=== PATIENT | male | born 1960 | race Caucasian/White ===

== ENCOUNTER 2018-09-27 09:11 | Inpatient (IN) | payer OTHER ==
[~2018-09-27] VITALS: Ht 190.5 cm; Wt 93.7 kg
[2018-09-27] VITALS (14 sets, daily range): BP systolic 73–120; BP diastolic 39–68
--- NOTE | ~2018-09-27 | EEG ---
[address] [address] EEG STUDY REPORT Name: OLIVE GARCIA Room: [address] IN .R.#: [id number] Admission: 09/27/18 Attend Phys: Joel Alvarez MD Discharge: Date of : 64 Report #: [id number] THIS REPORT FOR: //name// CC: Joel Alvarez [facility] physician/PCP DATE OF SERVICE: 09/28/2018 The patient is being evaluated for speech difficulty. The EEG was done by placing the electrodes by standard 10-20 system of electrode placement. Both referential and sequential montages were used for recording. The patient's background activity in this patient's EEG is about 9 Hz and 30 microvolts. The patient became drowsy and that was associated with bilateral slowing and vertex sharp waves. Photic stimulation was unremarkable. Throughout the record, no active epileptiform activity was noticed. IMPRESSION: This patient's EEG is unremarkable. By: 1143 1210Momo Cornelius MD /nt
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
[2018-09-27 09:29] LABS: ABSOLUTE BASOPHILS 0.1 thou/uL (0.0-0.2); ABSOLUTE EOSINOPHILS 0.1 thou/uL (0.0-0.7); ABSOLUTE LYMPHOCYTES 2.1 thou/uL (0.8-5.3); ABSOLUTE MONOCYTES 0.6 thou/uL (0.0-1.2); ABSOLUTE NEUTROPHILS 4.9 thou/uL (1.6-8.1); BASOPHILS 0.7 %; EOSINOPHILS 1.1 %; HEMATOCRIT 38.2 % (42.0-52.0); HEMOGLOBIN 12.7 gm/dL (14.0-18.0); LYMPHOCYTES 27.4 %; MCH 28.9 pg (26.0-34.0); MCHC 33.2 g/dL (28.0-37.0); MONOCYTES 7.8 %; MPV 10.9 fl. (7.2-11.1); NUCLEATED RBCS 0 /100WBC; PLATELET COUNT* 177 thou/uL (150-400); RBC 4.39 mil/uL (4.50-6.00); RDW-CV 13.4 % (10.5-14.5); WBC 7.8 thou/uL (4.0-11.0)
[2018-09-27 09:38] LABS: ANION GAP 5 mmol/L (7-16); APTT 27.8 Seconds (25.0-31.3); BUN 23 mg/dL (7-18); CALCIUM 8.6 mg/dL (8.5-10.1); CHLORIDE 106 mmol/L (98-107); CO2 27 mmol/L (21-32); GLUCOSE 99 mg/dL (70-99); POTASSIUM 4.2 mmol/L (3.5-5.1); PROTIME 10.4 Seconds (9.20-11.50); SODIUM 138 mmol/L (136-145)
[2018-09-27 09:49] LABS: ALBUMIN 3.7 g/dL (3.4-5.0); ALKALINE PHOSPHATASE 80 U/L (46-116); NT-PRO BRAIN NAT PEPTIDE 120 pg/mL (<300); SGOT 16 U/L (15-37); SGPT 25 U/L (30-65); TOTAL BILIRUBIN 0.4 mg/dL (<0.1-1.0); TOTAL PROTEIN 7.1 g/dL (6.4-8.2); TROPONIN-I LEVEL <0.06 ng/mL (<0.06)
[2018-09-28] VITALS (16 sets, daily range): BP systolic 91–121; BP diastolic 50–69
[2018-09-28 04:02] LABS: ABSOLUTE EOSINOPHILS 0.2 thou/uL (0.0-0.7); ABSOLUTE MONOCYTES 0.8 thou/uL (0.0-1.2); ABSOLUTE NEUTROPHILS 5.5 thou/uL (1.6-8.1); BASOPHILS 0.5 %; EOSINOPHILS 2.4 %; HEMATOCRIT 41.8 % (42.0-52.0); HEMOGLOBIN 13.6 gm/dL (14.0-18.0); LYMPHOCYTES 23.6 %; MCH 28.5 pg (26.0-34.0); MCHC 32.5 g/dL (28.0-37.0); MCV 87.7 fL (80.0-100.0); MPV 11.9 fl. (7.2-11.1); NUCLEATED RBCS 0 /100WBC; PLATELET COUNT* 179 thou/uL (150-400); POLYS 64.5 %; RBC 4.77 mil/uL (4.50-6.00); RDW-CV 13.5 % (10.5-14.5); WBC 8.6 thou/uL (4.0-11.0)
[2018-09-28 04:19] LABS: ALBUMIN 3.1 g/dL (3.4-5.0); CALCIUM 8.8 mg/dL (8.5-10.1); CREATININE 1.1 mg/dL (0.6-1.3); POTASSIUM 4.3 mmol/L (3.5-5.1); TOTAL BILIRUBIN 0.2 mg/dL (<0.1-1.0); TOTAL PROTEIN 6.5 g/dL (6.4-8.2)
[2018-09-28 04:23] LABS: CHOLESTEROL 113 mg/dL (<200); HDL CHOLESTEROL 38 mg/dL (>40); LDL CHOLESTEROL 53 mg/dL (<100); TRIGLYCERIDE 113 mg/dL (<150); VLDL 23 mg/dL (<40)
[2018-09-28 04:25] LABS: SERUM ASSESSMENT CLEAR
[2018-09-28 05:05] LABS: GLYCOHEMOGLOBIN (HGB A1C) 5.8 % (4.8-5.6)
--- NOTE | 2018-09-28 11:06 | EKG ---
[place] [address] ELECTROCARDIOGRAM REPORT Name: OLIVE GARCIA Room: [address] ADM IN .R.#: [id number] Admission: 09/27/18 Attend Phys: Jole Alvarez MD Discharge: Date of : 64 Report #: [id number] THIS REPORT FOR: //name// [facility] ED Test Date: 2018-09-27 Test Time: 09:23:48 Pat Name: OLIVE GARCIA Department: Room: [facility] Gender: M Preparatory Technician: : 1960 Requested By: Akira Woods Order Number: [id number] MD: Pepe De Oliveira Measurements Intervals [place] Rate: 59 P: 62 VA: 172 QRS: 65 QRSD: 92 T: 37 QT: 418 QTc: 414 Interpretive Statements Sinus rhythm No previous ECG available for comparison Electronically Signed On 09-28-2018 11:05:58 CDT by Pepe De Oliveira [email or web address] <ELECTRONICALLY SIGNED> By: Pepe De Oliveira MD, [facility] 09/28/18 1105 0923 2 Pepe De Oliveira MD, FACC /EPI
--- NOTE | 2018-09-28 18:23 | 2DMMODE ---
[place] [address] 2 D/M-MODE ECHOCARDIOGRAM Name: OLIVE GARCIA Room: [address] IN [facility]#: [id number] Admission: 09/27/18 Attend Phys: Joel Alvarez, Discharge: Date of : 64 Date of Service: 09/28/18 1823 Report #: [id number] THIS REPORT FOR: //name// APPROVED REPORT Study performed: 09/28/2018 10:19:38 EXAM: Comprehensive 2D, Doppler, and color-flow Echocardiogram Patient Location: In-Patient Room #: 003 Status: routine BSA: 2.27 HR: 51 bpm BP: 99/58 mmHg Rhythm: NSR Other Information Study Quality: Good Indications CVA/TIA Echo Enhancing Agent Indication: Rule out Shunt Agent(s) / Amount(s) Used: Agitated Saline 10 cc 2D Dimensions IVSd: 9.86 (7-11mm) LVOT Diam: 22.64 (18-24mm) LVDd: 52.69 mm PWd: 9.23 (7-11mm) Ascending Ao: 33.28 (22-36mm) LVDs: 33.57 (25-40mm) Aortic Root: 33.45 mm Volumes Left Atrial Volume (Systole) LA ESV Index: 33.40 mL/m2 Aortic Valve AoV Peak Eris.: 1.19 m/s AO Peak Gr.: 5.70 mmHg LVOT Max P.42 mmHg AO Mean Gr.: 3.65 mmHg LVOT Mean P.93 mmHg LVOT Max V: 1.05 m/s AO V2 VTI: 22.97 cm LVOT Mean V: 0.62 m/s SANTANA (VTI): 4.05 cm2 LVOT V1 VTI: 23.09 [place] [address] 2 D/M-MODE ECHOCARDIOGRAM Name: OLIVE GARCIA Room: [address] IN ..#: [id number] Admission: 09/27/18 Attend Phys: Joel Alvarez, Discharge: Date of : 64 Date of Service: 09/28/18 1823 Report #: [id number] Mitral Valve E/A Ratio: 1.37 MV Decel. Time: 265.21 ms MV E Max Eris.: 0.63 m/s MV PHT: 76.91 ms MVA (PHT): 2.86 cm2 TDI E/Lateral E': 3.71 E/Medial E': 4.50 Medial E' Eris.: 0.14 m/s Lateral E' Eris.: 0.17 m/s Pulmonary Valve PV Peak Eris.: 1.01 m/s PV Peak Gr.: 4.09 mmHg Tricuspid Valve RAP Estimate: 5.00 mmHg TR Peak Gr.: 17.66 mmHg RVSP: 32.00 mmHg PA Pressure: 32.00 mmHg Left Ventricle The left ventricle is normal size. There is normal LV segmental wall motion. There is normal left ventricular wall thickness. Left ventricular systolic function is normal. The left ventricular ejection fraction is within the normal range. LVEF is 60-65%. The left ventricular diastolic function is normal. Right Ventricle The right ventricle is normal size. The right ventricular systolic function is normal. Atria Left atrium is mildly dilated. Intravenous bubbles were noted to travel from the right atrium to the left atrium suggesting a small right to left shunt consistent with a PFO The right atrium size is normal. Aortic Valve The aortic valve is normal in structure. No aortic regurgitation is present. There is no aortic valvular stenosis. Mitral Valve The mitral valve is normal in structure. There is no mitral valve regurgitation noted. No evidence of mitral valve stenosis[place] [address] 2 D/M-MODE ECHOCARDIOGRAM Name: OLIVE GARCIA Room: [address] IN [facility]#: [id number] Admission: 09/27/18 Attend Phys: Joel Alvarez, Discharge: Date of : 64 Date of Service: 09/28/18 1823 Report #: [id number] The tricuspid valve is normal in structure. Trace tricuspid regurgitation. No pulmonary hypertension. Pulmonic Valve The pulmonary valve is normal in structure. There is no pulmonic valvular regurgitation. Great Vessels The aortic root is normal in size. IVC is normal in size and collapses >50% with inspiration. Pericardium There is no pericardial effusion. <Conclusion> LVEF is 60-65%. Left atrium is mildly dilated. Intravenous bubbles were noted to travel from the right atrium to the left atrium suggesting a small right to left shunt consistent with a PFO <ELECTRONICALLY SIGNED> By: Pepe De Oliveira MD, [facility] 09/28/18 182 22 22 Pepe De Oliveira MD, FACC /INF
[2018-09-29] VITALS: BP 116/58
[2018-09-29 03:57] VITALS: BP 115/61
[2018-09-29 07:40] VITALS: BP 120/64
[2018-09-29 10:56] LABS: URINE BILIRUBIN NEGATIVE (Negative); URINE BLOOD NEGATIVE (Negative); URINE CLARITY CLEAR; URINE COLOR YELLOW; URINE GLUCOSE-RANDOM NEGATIVE (Negative); URINE KETONES NEGATIVE (Negative); URINE LEUKOCYTES-REFLEX NEGATIVE (Negative); URINE NITRITE-REFLEX NEGATIVE (Negative); URINE PROTEIN NEGATIVE (Negative); URINE UROBILINOGEN 0.2 E.U./dl (0.2-1.0)
[2018-09-29 11:05] VITALS: BP 115/61
[2018-09-29 11:05] LABS: AMP/METHAMP Negative (Negative); BARBITURATES Negative (Negative); BENZODIAZEPINES Negative (Negative); COCAINE Negative (Negative); METHADONE Negative (Negative); OPIATES Negative (Negative); PCP Negative (Negative); THC Negative (Negative)
[2018-09-29] MEDS ORDERED: AMOXICILLIN875 MG PO (11:16)
[2018-09-29 11:22] VITALS: BP 122/66
[2018-09-29] MEDS ORDERED: TRIPLE ANTIBIO1 EACH TOP (11:22)
[2018-09-29] MEDS ORDERED: ASPIR 8181 MG PO (11:25)
== END 2018-09-29 13:24 | disposition home or self-care (01) | DRG 92 ==
LOC: M.ERS 09:11 → M.2W 09:59 → M.TBA-ER 09:59 → M.ICU 11:32 → M.2W 09-28 16:12
PROVIDERS: Emergency Medicine Emergency Medical Services; ADMIT Internal Medicine
DX: R47.1 Dysarthria and anarthria (principal); G93.40 Encephalopathy, unspecified; L03.114 Cellulitis of left upper limb; F17.210 Nicotine dependence, cigarettes, uncomplicated; E86.0 Dehydration; G93.89 Other specified disorders of brain; G93.0 Cerebral cysts; Z79.899 Other long term (current) drug therapy

== ENCOUNTER → 2018-11-07 | Outpatient (CLI) | payer OTHER ==
[~2018-11-07] MED LIST: AMOXICILLIN875 MG PO; ASPIR 8181 MG PO; TRIPLE ANTIBIO1 EACH TOP
== END ==
LOC: M.LAB 14:50
DX: R47.9 Unspecified speech disturbances (principal); R41.3 Other amnesia; Q21.1 Atrial septal defect